=== PATIENT | male | born 2005 | race Caucasian/White ===

== ENCOUNTER 2023-04-30 17:29 | Inpatient (IN) | payer OTHER ==
[~2023-04-30] VITALS: Ht 188 cm; Wt 64.9 kg
[2023-04-30 18:04] VITALS: RESP 24
[2023-04-30 18:22] VITALS: BP 98/53; PULSE 56; RESP 18; TEMP 98.1; O2SAT 100
[2023-04-30 20:30] VITALS: BP 102/58; PULSE 64; RESP 20; TEMP 97.8; O2SAT 98
[2023-05-01 08:14] VITALS: BP 115/65; PULSE 60; RESP 17; TEMP 97.6; O2SAT 100
[2023-05-01 08:18] LABS: BASOPHILS % (AUTO) 0.4 % (0.0-2.0); EOSINOPHILS % (AUTO) 1.6 % (1.0-6.0); HEMATOCRIT 45.1 % (41-53); HEMOGLOBIN 14.8 g/dL (13.5-17.5); LYMPHOCYTES # (AUTO) 1.6 K/uL (1.0-4.8); LYMPHOCYTES % (AUTO) 23.2 % (22.0-44.0); MEAN CORPUSCULAR HEMOGLOBIN 28.4 pg (26.0-34.0); MEAN CORPUSCULAR HGB CONC 32.8 G/dL (31.0-37.0); MEAN CORPUSCULAR VOLUME 87 fL (80-100); MONOCYTES # (AUTO) 0.6 K/uL (0.1-1.0); MONOCYTES % (AUTO) 8.2 % (2.0-9.0); NEUTROPHILS # (AUTO) 4.5 K/uL (1.8-7.7); NEUTROPHILS % (AUTO) 66.6 % (40.0-70.0); PLATELET COUNT (AUTO) 233 K/uL (150-450); RED CELL DISTRIBUTION WIDTH 13.2 % (11.5-14.5)
[2023-05-01] MEDS ORDERED: IBUPROFEN 600 MG TABLET PO PRN (08:45)
[2023-05-01] MEDS ORDERED: ALBUTEROL SULFATE HFA 90 MCG/PUFF 8 GM INHALER IH PRN (08:45)
[2023-05-01] MEDS ORDERED: ONDANSETRON HCL 4 MG TABLET PO PRN (08:45)
[2023-05-01] MEDS ORDERED: LOPERAMIDE HCL 2 MG CAPSULE PO PRN (08:45)
[2023-05-01] MEDS ORDERED: ACETAMINOPHEN 325 MG TABLET PO PRN (08:45)
[2023-05-01] MEDS ORDERED: BENZOCAINE/MENTHOL LOZENGE PO PRN (08:45)
[2023-05-01] MEDS ORDERED: OMEPRAZOLE 20 MG CAPSULE PO PRN (08:45)
[2023-05-01] MEDS ORDERED: CloNIDine HCL 0.1 MG TABLET PO PRN (08:45)
[2023-05-01] MEDS ORDERED: DOCUSATE SODIUM 100 MG CAPSULE PO PRN (08:45)
[2023-05-01] MEDS ORDERED: BACITRACIN 28 GM OINTMENT TP PRN (08:45)
[2023-05-01] MEDS ORDERED: PETROLATUM,WHITE 28 GM JELLY TP PRN (08:45)
[2023-05-01] MEDS ORDERED: MAGNESIUM HYDROXIDE SUSPENSION 30 ML UDCUP PO PRN (08:45)
[2023-05-01] MEDS ORDERED: MAG HYDROX/AL HYDROX/SIMETH ES 30 ML SUSPENSION UDCUP PO PRN (08:45)
[2023-05-01 09:01] LABS: ALANINE AMINOTRANSFERASE 38 U/L (12-78); ALBUMIN 4.1 g/dL (3.4-5.0); ALKALINE PHOSPHATASE 70 U/L (46-116); ANION GAP 10 mmol/L (8-16); ASPARTATE AMINOTRANSFERASE 45 U/L (15-37); CALCIUM, TOTAL 9.4 mg/dL (8.8-10.5); CARBON DIOXIDE 28 mmol/L (22-29); CHLORIDE 102 mmol/L (98-107); CHOL/HDL RATIO 3.7 (4.2-7.3); CHOLESTEROL 161 mg/dL (131-200); CREATININE 1.24 mg/dL (0.60-1.30); FREE T4 (FREE THYROXINE) 0.98 ng/dL (0.76-1.46); GLOMERULAR FILTR. RATE CALC > 60 mL/min (>60); GLUCOSE,RANDOM 78 mg/dL (70-110); HDL CHOLESTEROL 43 mg/dL (40-60); LDL CHOL (CALC.) 109 mg/dL (0-130); POTASSIUM 4.2 mmol/L (3.5-5.1); SODIUM SERUM 140 mmol/L (136-145); THYROID STIMULATING HORMONE 1.63 uIU/mL (0.36-3.74); TOTAL PROTEIN, SERUM 7.2 g/dL (6.4-8.2); TRIGLYCERIDES 45 mg/dL (15-150)
[2023-05-01 09:12] LABS: HEMOGLOBIN A1C 5.1 % (3.8-5.6)
[2023-05-01] MEDS: LORazepam 2 MG TABLET PO PRN ×2 (15:06→20:29)
[2023-05-01] MEDS: HALOPERIDOL 5 MG TABLET PO PRN ×2 (15:06→20:29)
[2023-05-01 20:23] VITALS: BP 108/70; PULSE 80; RESP 18; TEMP 98.2; O2SAT 98
[2023-05-01] MEDS: ZOLPIDEM TARTRATE 10 MG TABLET PO PRN (20:29)
[2023-05-01] MEDS: LURASIDONE HCL 20 MG TABLET PO SCH (20:41)
[2023-05-02 08:12] VITALS: RESP 18
[2023-05-02] MEDS: BuPROPion HCL XL 150 MG ER TABLET PO SCH (08:25)
[2023-05-02] MEDS ORDERED: GuanFACINE HCL 1 MG TABLET PO SCH ×3 (09:00→21:00)
[2023-05-02 09:20] VITALS: BP 128/77; PULSE 62; RESP 18; TEMP 97; O2SAT 96
[2023-05-02] MEDS: LITHIUM CARBONATE 300 MG CAPSULE PO SCH (17:06)
[2023-05-02] MEDS: LORazepam 2 MG TABLET PO PRN (17:06)
[2023-05-02] MEDS: LURASIDONE HCL 20 MG TABLET PO SCH (20:24)
[2023-05-02 20:26] VITALS: BP 100/61; PULSE 94; RESP 17; TEMP 98; O2SAT 97
[2023-05-02] MEDS ORDERED: DIVALPROEX SODIUM 125 MG DR TABLET PO SCH (21:00)
[2023-05-02] MEDS: ZOLPIDEM TARTRATE 10 MG TABLET PO PRN (22:20)
[2023-05-03] MEDS: LORazepam 2 MG TABLET PO PRN ×2 (03:16→10:27)
[2023-05-03] MEDS: BuPROPion HCL XL 150 MG ER TABLET PO SCH (08:07)
[2023-05-03] MEDS: LITHIUM CARBONATE 300 MG CAPSULE PO SCH (08:07)
[2023-05-03 08:22] VITALS: BP 118/72; PULSE 95; RESP 17; TEMP 98.1; O2SAT 98
[2023-05-03] MEDS ORDERED: DIVALPROEX SODIUM 500 MG DR TABLET PO SCH (09:00)
[2023-05-03] MEDS: HALOPERIDOL 5 MG TABLET PO PRN (10:27)
== END 2023-05-03 17:14 | disposition home or self-care (01) | DRG 885 ==
LOC: B3A 19:01
PROVIDERS: ADMIT Psychiatry & Neurology Psychiatry; ATTEND Psychiatry & Neurology Psychiatry
DX: F20.9 Schizophrenia, unspecified (principal); F41.9 Anxiety disorder, unspecified; G47.00 Insomnia, unspecified; F31.9 Bipolar disorder, unspecified; K59.00 Constipation, unspecified; F12.90 Cannabis use, unspecified, uncomplicated; F10.90 Alcohol use, unspecified, uncomplicated; Y90.9 Presence of alcohol in blood, level not specified; Z91.51 Personal history of suicidal behavior
CPT/HCPCS: 80053; 80061; 83036; 84436; 84439; 84443; 85025; 86592; G0480; Q9967